=== PATIENT | female | born 1965 | race Caucasian/White ===

== ENCOUNTER → 2016-06-30 | Outpatient (CLI) | payer BC ==
[~2016-06-30] MED LIST: CALC600T10 PO
--- NOTE | 2016-07-01 08:43 | REP ---
DIGITAL SCREENING BILATERAL MAMMOGRAPHY WITH CAD: COMPARISON MAMMOGRAPHY: February 19, 2015, May 23, 2013, and July 27, 2011. MAMMOGRAPHIC FINDINGS: Scattered fibroglandular elements are again noted. There is a neodensity projecting posteriorly and medially in the left breast on CC view. This is not seen with confidence on the MLO view. It merits further evaluation. There is also a rounded 5 mm nodule projecting laterally on the CC view. This is not seen on the MLO view. The remainder of the left breast and the entirety of the right breast are otherwise unchanged and unremarkable. No microcalcification spiculation or architectural distortion is seen. IMPRESSION: BIRADS category 0 incomplete breast imaging. Two nodular neodensities are visible in the left breast on CC view. Diagnostic left breast mammography and focused left breast sonography recommended. BI-RADS/ACR category 0 mammogram, incomplete. Additional imaging and/or prior images are needed before a final assessment can be assigned. This mammogram was interpreted with the aid of an FDA-approved computer-aided detection system. The patient states she/he had a clinical breast exam in June 2016. The patient letter being requested is M0.
== END ==
LOC: M WHC 15:51
PROVIDERS: ATTEND Nurse Practitioner Family
DX: Z12.31 Encounter for screening mammogram for malignant neoplasm of breast (principal)

== ENCOUNTER → 2016-07-11 | Outpatient (CLI) | payer BC ==
--- NOTE | 2016-07-11 16:19 | REP ---
DIAGNOSTIC DIGITAL LEFT MAMMOGRAM: 07/11/2016: Comparison: 06/30/2016, 02/19/2015, screening mammogram; left breast ultrasound 07/11/2016. Clinical history: Nodular tissue asymmetry left breast lower inner quadrant laterally and medially. Knees: Spot magnified MLO, CC and true MLO view were obtained. CC view shows the area laterally to compress to normal appearance and is still not visible on the MLO view. The lesion more medially on the CC view is again seen on the spot magnified view and preserved. It is also suggested on the MLO view. Ultrasound showed a 6 x 3.3 x 2.8 mm cyst. Another at 5.1 x 3.3 x 1.6 mm cyst in the lower inner quadrant corresponding to the mammographic finding. Impression: 1. BIRADS ACR category 2, benign. Benign findings. The cyst medial aspect left breast lower inner quadrant correspond to mammographic finding. No solid mass and the more lateral finding on the CC view compresses to normal parenchymal appearance on the spot magnified CC view and is again not visible on the MLO or ML view. No evidence of malignancy. 2. Recommend followup mammography 1 year. This mammogram was interpreted with the aid of an FDA-approved computer-aided detection system. The patient states she had a clinical breast exam in 06/2016 The patient letter being requested is M1, dense. Signed by Edison Garcia MD 07/11/2016 05:46 P
--- NOTE | 2016-07-12 17:27 | REP ---
LEFT BREAST ULTRASOUND, 07/11/2016: Clinical history: Nodular tissue asymmetry left breast on screening mammogram 06/30/2016. Comparison: Diagnostic digital left mammogram today, screening mammogram 06/30/2016, 02/19/2015. Findings: Sonographic evaluation of the left breast lower inner quadrant 6-9 o'clock position showed heterogeneous echogenic fibrocystic breast tissue. There are multiple cysts present, but the largest is at the 6-o'clock position 1.8 cm from the nipple. It measures 5.1 x 3.3 x 1.6 mm and the other 6 x 3.3 x 2.8 mm. Larger of these likely correlates to the mammographic finding. Impression: There are two cysts in the lower inner quadrant left breast, 6 x 3.3 and 5.1 x 3.3 mm about 1.8 cm from the nipple. No solid mass or other significant finding. Please see mammographic report this date for final assessment and recommendation. Signed by Edison Garcia MD 07/13/2016 05:02 P
== END ==
LOC: M RAD 14:47
PROVIDERS: ATTEND Nurse Practitioner Family
DX: N60.82 Other benign mammary dysplasias of left breast (principal)
CPT/HCPCS: 76642; G0206

== ENCOUNTER → 2016-08-02 | Outpatient (REF) | payer BC | LOC: M SFHCWAGY 10:13 | PROVIDERS: ATTEND Nurse Practitioner Family | DX: Z01.419 Encounter for gynecological examination (general) (routine) without abnormal findings (principal) ==

== ENCOUNTER → 2017-11-15 | Outpatient (REF) | payer BC | LOC: M SFHCWAGY 08:44 | DX: Z12.4 Encounter for screening for malignant neoplasm of cervix (principal); R87.619 Unspecified abnormal cytological findings in specimens from cervix uteri ==

== ENCOUNTER → 2017-11-15 | Outpatient (CLI) | payer BC | LOC: M WHC 08:08 | DX: Z12.31 Encounter for screening mammogram for malignant neoplasm of breast (principal); Z79.3 Long term (current) use of hormonal contraceptives | CPT/HCPCS: G0123 ==

== ENCOUNTER → 2018-11-16 | Outpatient (REF) | payer BC ==
[~2018-11-16] MED LIST changes: -CALC600T10 PO; +CALC600T31 PO
[2018-11-21 14:22] LABS: HPV HYBRID CAPTURE II Negative (Negative)
== END ==
LOC: M SFHCWAGY 16:04
PROVIDERS: ATTEND Nurse Practitioner Family
DX: Z12.4 Encounter for screening for malignant neoplasm of cervix (principal)
CPT/HCPCS: 87624; G0123

== ENCOUNTER → 2018-11-16 | Outpatient (CLI) | payer BC ==
--- NOTE | 2018-11-16 10:04 | REP ---
BILATERAL SCREENING DIGITAL MAMMOGRAM WITH 3D TOMOSYNTHESIS: There are no palpable abnormalities or other breast complaints. The the patient states she had a clinical breast examination 12/04 18. The the patient states she performs self-breast examinations 12 times per year. The Tyrer Cuzick Score is: 10.1% . Comparisons are 05/23/2013, 06/30/2016 and 11/15/2017. The breasts are heterogeneously dense, which could obscure small masses. There is no dominant mass, micro calcific cluster or architectural distortion that would indicate malignancy. There are no additional findings on 3D tomosynthesiss. There is no change from the prior study. Impression: BIRADS/ACR category 1 mammogram. Negative. Recommendation: Routine annual screening mammography. Because of the increased breast density, annual adjunctive breast MRI in addition to screening mammography is recommended. These can be performed at alternating six month intervals. This mammogram was interpreted with the aid of a FDA approved computer-aided detection system. A. Negative mammogram reports should not delay biopsy if a dominant or clinically suspicious mass is present. B. Not all breast cancers are identified by mammography or tomosynthesis. C. Adenosis and dense breasts may obscure an underlying neoplasm. Patient letter M1 dense breasts. Electronically Signed by Trey Flores MD 11/16/2018 09:56 A
== END ==
LOC: M WHC 08:14
PROVIDERS: ATTEND Nurse Practitioner Family
DX: Z12.31 Encounter for screening mammogram for malignant neoplasm of breast (principal)

== ENCOUNTER → 2019-11-19 | Outpatient (CLI) | payer BC ==
--- NOTE | 2019-12-11 08:29 | REPMRS ---
Patient History The patient states she had a clinical breast exam in November 2019.Family history of pancreatic cancer at age 50 or over in paternal grandmother. Taking hormonal contraceptives for 1 year 9 months. Digital Woman Screen Mammo: November 19, 2019 - Exam #: [id number] Bilateral CC and MLO view(s) were taken. Technologist: Carine Lau, Technologist Prior study comparison: November 16, 2018, bilateral digital woman screen mammo performed at [facility]. November 15, 2017, bilateral digital woman screen mammo performed at [facility]. June 30, 2016, digital woman screen mammo performed at [facility]. FINDINGS: The breast tissue is heterogeneously dense. This may lower the sensitivity of mammography. There is a moderate amount of heterogeneously dense fibroglandular tissue which is fairly symmetric. There is no interval development of dominant mass, architectural distortion, or grouped microcalcification typical of malignancy. There has been no change in the appearance of the mammogram from the prior studies. 3-D tomosynthesis shows no additional findings. Report was delayed due to a protracted computer network disruption experienced by this facility. Assessment: BI-RADS/ACR category 1 mammogram. Negative Mammogram. Recommendation Routine screening mammogram of both breasts in 1 year (for women over age 40). This patient's Lifetime Breast Cancer RIsk is estimated at 10.2 %. This mammogram was interpreted with the aid of an FDA-approved computer-aided dectection system. Electronically Signed By: Sarabjit Dumont MD 12/11/19 0824
== END ==
LOC: M WHC 17:38
PROVIDERS: ATTEND Nurse Practitioner Family
DX: Z12.31 Encounter for screening mammogram for malignant neoplasm of breast (principal)

== ENCOUNTER → 2019-11-19 | Outpatient (REF) | payer BC | LOC: M SFHCPLAZ 10:25 | PROVIDERS: ATTEND Nurse Practitioner Family | DX: Z12.4 Encounter for screening for malignant neoplasm of cervix (principal) | CPT/HCPCS: 87624; G0123 ==

== ENCOUNTER → 2020-12-09 | Outpatient (CLI) | payer BC ==
--- NOTE | 2020-12-09 11:53 | REPMRS ---
Patient History The patient states she had a clinical breast exam in November 2020. Family history of pancreatic cancer at age 50 or over in paternal grandmother. Taking hormonal contraceptives for 2 years 9 months. Patient states no breast complaints today. Patient has signed MRS History Sheet. Digital Woman Screen Mammo: December 09, 2020 - Exam #: [id number] Bilateral CC and MLO view(s) were taken. Technologist: May Bowens, Technologist Prior study comparison: November 19, 2019, bilateral digital woman screen mammo performed at [facility]. November 16, 2018, bilateral digital woman screen mammo performed at [facility]. November 15, 2017, bilateral digital woman screen mammo performed at [facility]. FINDINGS: There are scattered fibroglandular densities. The Volpara volumetric breast density category is: B. There is a moderate amount of residual fibroglandular tissue which is fairly symmetric. There is no interval development of dominant mass, architectural distortion, or grouped microcalcification typical of malignancy. There has been no change in the appearance of the mammogram from the prior studies. 3-D tomosynthesis shows no additional findings. Assessment: BI-RADS/ACR category 1 mammogram. Negative Mammogram. Recommendation Routine screening mammogram of both breasts in 1 year (for women over age 40). This patient's [facility] Lifetime Breast Cancer RIsk is estimated at 10.2 %. This mammogram was interpreted with the aid of an FDA-approved computer-aided dectection system. Electronically Signed By: Sarbajit Dumont MD 12/09/20 [id number]
== END ==
LOC: M WHC 10:55
PROVIDERS: ATTEND Nurse Practitioner Women's Health
DX: Z12.31 Encounter for screening mammogram for malignant neoplasm of breast (principal)

== ENCOUNTER → 2020-12-09 | Outpatient (REF) | payer BC | LOC: M SFHCWAGY 12:53 | PROVIDERS: ATTEND Nurse Practitioner Women's Health | DX: Z12.4 Encounter for screening for malignant neoplasm of cervix (principal) | CPT/HCPCS: 87624; G0123 ==

== ENCOUNTER → 2022-06-03 | Outpatient (CLI) | payer BC | LOC: M WHC 09:38 | PROVIDERS: ATTEND Nurse Practitioner Family | DX: Z12.31 Encounter for screening mammogram for malignant neoplasm of breast (principal) ==

== ENCOUNTER → 2022-06-03 | Outpatient (REF) | payer BC | LOC: M PLALAB 11:31 | PROVIDERS: ATTEND Nurse Practitioner Family | DX: Z12.4 Encounter for screening for malignant neoplasm of cervix (principal); R87.610 Atypical squamous cells of undetermined significance on cytologic smear of cervix (ASC-US) | CPT/HCPCS: 87624; G0123 ==

== ENCOUNTER → 2023-07-10 | Outpatient (REF) | payer BC | LOC: M SFHCWAGY 13:11 | PROVIDERS: ATTEND Nurse Practitioner Family | DX: Z12.4 Encounter for screening for malignant neoplasm of cervix (principal) | CPT/HCPCS: 87624; G0123 ==

== ENCOUNTER → 2023-07-10 | Outpatient (CLI) | payer BC | LOC: M WHC 08:08 | PROVIDERS: ATTEND Nurse Practitioner Family | DX: Z12.31 Encounter for screening mammogram for malignant neoplasm of breast (principal) ==

== ENCOUNTER → 2025-02-26 | Outpatient (REF) | payer BC ==
[2025-02-28 14:28] LABS: HPV APTIMA Not Detected (Not Detected)
== END ==
LOC: M PLALAB 14:18
PROVIDERS: ATTEND Physician Assistant
DX: Z12.4 Encounter for screening for malignant neoplasm of cervix (principal)
CPT/HCPCS: 87624; G0123

== ENCOUNTER → 2025-02-26 | Outpatient (CLI) | payer BC | LOC: M WHC 13:33 | PROVIDERS: ATTEND Physician Assistant | DX: Z12.31 Encounter for screening mammogram for malignant neoplasm of breast (principal); R92.323 Mammographic fibroglandular density, bilateral breasts ==